=== PATIENT | female | born 1930 | race Caucasian/White ===

== ENCOUNTER 2017-02-14 23:21 | Inpatient (IN) | payer MEDICARE ==
[~2017-02-14] VITALS: Ht 152.4 cm; Wt 60.3 kg
[2017-02-14] MEDS ORDERED: ALPR0.25 PO (23:29)
[2017-02-14] MEDS ORDERED: PARO10TA3 PO (23:29)
[2017-02-14] MEDS ORDERED: LOVA10TA PO (23:29)
[2017-02-14] MEDS ORDERED: cefTRIAXone INJECTION 1,000 MG in NS (IVPB) 50 ML IV ONE (23:30)
[2017-02-14 23:49] LABS: HEMOGLOBIN 9.1 G/DL (11.5-16.0); MEAN PLATELET VOLUME 9.4 FL (7.4-10.4); RED BLOOD COUNT 2.78 10^6/uL (4.35-5.85); RED CELL DISTRIBUTION WIDTH 12.8 % (10.0-14.5); WHITE BLOOD COUNT 12.4 10^3/uL (4.3-11.0)
[2017-02-14 23:58] LABS: PROTHROMBIN TIME PATIENT 13.5 SEC (12.2-14.7)
--- NOTE | 2017-02-15 00:29 | ED Fall/Injury ---
General Chief Complaint: Trauma-Non Activation Stated Complaint: FALL Nursing Triage Note: FALL LEFT HIP FX Source: patient Exam Limitations: no limitations (NATACHA LANCASTER MD) History of Present Illness Time seen by provider: 23:25 Initial Comments This 86-year-old woman presents to the emergency room as a transfer from [facility] in [place] with a known left hip fracture. Patient reports stumbling off of a low curb and falling on her left side. She denies striking her head or any head or neck pain. She denies any prodrome of lightheadedness, dizziness, etc. She is a relatively healthy woman with few health problems. She was seen and evaluated by Dr. Valles who called report to me and to CHEMA Nuno. I discussed the case with him at 22:30. Case had also been reviewed between Darian You and Dr. Carrneo who tentatively accepted the patient but requested the patient be routed through the ER. Patient received a total of fentanyl 200 g and morphine 2 mg by [facility]. She also received an additional 2 mg of morphine by EMS. Pain is fairly well controlled by the time of arrival. Labs were reviewed as provided by EMS. Patient was noted to have some anemia. Suggestion of UTI was also noted. Occurred: this evening Injuries/Pain Location: lower extremity Context: slipped Loss of Consciousness: no loss of consciousness (NATACHA LANCASTER MD) Allergies and Home Medications Allergies Coded Allergies: No Known Drug Allergies (Unverified , 02/14/17) Home Medications Alprazolam 0.25 Mg Tablet, Unknown Dose PO, (Reported) Lovastatin 10 Mg Tablet, Unknown Dose PO, (Reported) Paroxetine HCl 10 Mg Tablet, Unknown Dose PO, (Reported) Constitutional: no symptoms reported Eyes: No Symptoms Reported Ears, Nose, Mouth, Throat: no symptoms reported Respiratory: no symptoms reported Cardiovascular: no symptoms reported Gastrointestinal: no symptoms reported Genitourinary: no symptoms reported Musculoskeletal: see HPI Skin: no symptoms reported Psychiatric/Neurological: No Symptoms Reported (NATACHA LANCASTER MD) Past Rglmezj-Upyywy-Gaccxy Hx Patient Social History Alcohol Use: Denies Use Recreational Drug Use: No 2nd Hand Smoke Exposure: No Recent Foreign Travel: No Contact w/Someone Who Travel: No Recent Infectious Disease Expo: No Recent Hopitalizations: No (NATACHA LANCASTER MD) Immunizations Up To Date Tetanus Booster (TDap): Unknown (NATACHA LANCASTER MD) Seasonal Allergies Seasonal Allergies: No (NATACHA LANCASTER MD) Surgeries History of Surgeries: Yes Surgeries: Orthopedic (NATACHA LANCASTER MD) Respiratory History of Respiratory Disorde: No (NATACHA LANCASTER MD) Cardiovascular History of Cardiac Disorders: Yes Cardiac Disorders: High Cholesterol (NATACHA LANCASTER MD) Neurological History of Neurological Disord: No (NATACHA LANCASTER MD) Reproductive System : No 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 (NATACHA LANCASTER MD) Genitourinary History of Genitourinary Disor: No (NATACHA LANCASTER MD) Gastrointestinal History of Gastrointestinal Di: No (NATACHA LANCASTER MD) Musculoskeletal History of Musculoskeletal Dis: Yes Musculoskeletal Disorders: Arthritis (NATACHA LANCASTER MD) Endocrine History of Endocrine Disorders: No (NATACHA LANCASTER MD) HEENT History of HEENT Disorders: No (NATACHA LANCASTER MD) Cancer History of Cancer: No (NATACHA LANCASTER MD) Psychosocial History of Psychiatric Problem: Yes Behavioral Health Disorders: Anxiety, Depression (NATACHA LANCASTER MD) Integumentary History of Skin or Integumenta: No (NATACHA LANCASTER MD) Physical Exam Vital Signs Vital Sign - Last 12Hours 02/14/17 23:21 Temp 96.5 Pulse 70 Resp 18 B/P (MAP) 128/72 (90) Pulse Ox 97 O2 Delivery Room Air (DARIAN YOU) Vital Signs Capillary Refill : Less Than 3 Seconds (NATACHA LANCASTER MD) General Appearance: WD/WN, no apparent distress HEENT: PERRL/EOMI, normal ENT inspection, pharynx normal Neck: normal inspection Cardiovascular: regular rate, rhythm, no edema, no murmur Respiratory: lungs clear, normal breath sounds, no respiratory distress, no accessory muscle use Gastrointestinal: normal bowel sounds, non tender, soft Extremities: normal inspection, no pedal edema, other (left lateral hip tender to palpation. Distal capillary refill, sensation, movement, and pulses intact.) Neurologic/Psychiatric: area secretary II-XII nml as tested, no motor/sensory deficits, alert, normal mood/affect, oriented x 3 Skin: normal color, warm/dry (NATACHA LANCASTER MD) Inna Coma Score Best Eye Response: (4) Open Spontaneously Best Verbal Response: (5) Oriented Best Motor Response: (6) Obeys Commands Inna Total: 15 (NATACHA LANCASTER MD) Progress/Results/Core Measures Results/Orders Lab Results Laboratory Tests Test 02/14/17 23:40 Range/Units White Blood Count 12.4 H 4.3-11.0 10^3/uL Red Blood Count 2.78 L 4.35-5.85 10^6/uL Hemoglobin 9.1 L 11.5-16.0 G/DL Hematocrit 28 L 35-52 % Mean Corpuscular Volume 102 H 80-99 FL Mean Corpuscular Hemoglobin 33 25-34 PG Mean Corpuscular Hemoglobin Concent 32 32-36 G/DL Red Cell Distribution Width 12.8 10.0-14.5 % Platelet Count 211 130-400 10^3/uL Mean Platelet Volume 9.4 7.4-10.4 FL Prothrombin Time 13.5 12.2-14.7 SEC INR Comment 1.0 0.8-1.4 Activated Partial Thromboplast Time 20 L 24-35 SEC (DARIAN YOU) Medications Given in ED Current Medications Medications Dose Ordered Sig/Kamron Route Start Time Stop Time Status Last Admin Dose Admin Ceftriaxone Sodium 1000 mg/ Sodium Chloride 50 ml @ 100 mls/hr ONCE ONCE IV 02/14/17 23:30 02/14/17 23:59 DC 02/14/17 23:43 100 MLS/HR (DARIAN YOU) Vital Signs/I&O Vital Sign - Last 12Hours 02/14/17 23:21 Temp 96.5 Pulse 70 Resp 18 B/P (MAP) 128/72 (90) Pulse Ox 97 O2 Delivery Room Air (DARIAN YOU) Blood Pressure Mean: 90 Progress Note : Time: 00:30 Progress Note Pain was controlled during the ER stay. Coag studies were added to the workup along with a repeat CBC. Hemoglobin showed minimal change. X-rays of the hip were reviewed on the CD. There is a comminuted intertrochanteric left hip fracture noted. Rocephin was given for suggestion of UTI. (NATACHA LANCASTER MD) Diagnostic Imaging Diagonstic Imaging: Xray Plain Films/CT/US/NM/MRI: hip Comments X-rays of the left hip viewed by me. Report not yet available. There is a comminuted intertrochanteric left hip fracture. Diagonstic Imaging: CT Plain Films/CT/US/NM/MRI: c-spine, head Comments CT head and C-spine viewed by me and stat rad report reviewed. No acute injuries identified. (NATACHA LANCASTER MD) Departure Communication (Admissions) Progress Notes 0 Call accepted from [facility] ED of [facility]. 86 yo female patient with isolated left hip fracture. Dr. Yoo requesting transfer to [facility] ED due to no ortho coverage in [facility]. [facility] staff to fax patient info for review and discussion with Dr. Carreno. [id number] info received from [facility] ED. Isolated left hip fracture per records. Patient case discussed with Dr. Carreno. Dr. Carreno tentatively accepts patient to his orthopaedic service, but request patient to be evaluated in the emergency department. Dr. Yoo notified of accepting patient in ED to ED transfer. (DARIAN YOU) Impression Impression: Primary Impression: Intertrochanteric fracture of left hip Qualified Codes: S72.142A - Displaced intertrochanteric fracture of left femur , initial encounter for closed fracture Additional Impressions: Fall on same level Qualified Codes: W18.30XA - Fall on same level, unspecified, initial encounter Urinary tract infection Qualified Codes: N39.0 - Urinary tract infection, site not specified Disposition: ADMITTED INPATIENT Condition: Improved Admissions Decision to Admit Reason: Admit from ER (Trauma) Decision to Admit/Date: Feb 14, 2017 Time/Decision to Admit Time: 22:30 (NATACHA LANCASTER MD) NATACHA LANCASTER MD Feb 15, 2017 00:29 DARIAN YOU Feb 15, 2017 00:47
[2017-02-15 01:45] VITALS: BP 136/65
[2017-02-15] MEDS ORDERED: morphine INJ 4 MG/ML 1 ML (VIAL/SYRINGE) ONE (01:59)
[2017-02-15] MEDS ORDERED: NS IV 1000 ML 1,000 ML ONE (01:59)
[2017-02-15] MEDS: morphine INJ 4 MG/ML 1 ML (VIAL/SYRINGE) IV PRN ×2 (02:34→08:04)
[2017-02-15] MEDS: NS IV 1000 ML 1,000 ML IV SCH ×4 (02:34→22:45)
[2017-02-15] MEDS ORDERED: ONDANSETRON 4 MG/2 ML (SDV) Z0FRAN IV PRN (02:45)
[2017-02-15 04:00] VITALS: BP 102/53
[2017-02-15 06:28] LABS: BASOPHILS % (AUTO) 0 % (0-10); EOSINOPHILS % (AUTO) 0 % (0-10); HEMATOCRIT 29 % (35-52); HEMOGLOBIN 9.3 G/DL (11.5-16.0); LYMPHOCYTES # (AUTO) 1.9 X 10^3 (1.0-4.0); LYMPHOCYTES % (AUTO) 18 % (12-44); MEAN CORPUSCULAR HEMOGLOBIN 33 PG (25-34); MEAN CORPUSCULAR HGB CONC 32 G/DL (32-36); MEAN CORPUSCULAR VOLUME 104 FL (80-99); MEAN PLATELET VOLUME 9.5 FL (7.4-10.4); MONOCYTES # (AUTO) 0.9 X 10^3 (0.0-1.0); MONOCYTES % (AUTO) 8 % (0-12); NEUTROPHILS % (AUTO) 74 % (42-75); PLATELET COUNT 226 10^3/uL (130-400); RED CELL DISTRIBUTION WIDTH 12.9 % (10.0-14.5); WHITE BLOOD COUNT 10.8 10^3/uL (4.3-11.0)
[2017-02-15 06:43] LABS: ALBUMIN 3.4 GM/DL (3.2-4.5); BILIRUBIN,TOTAL 0.5 MG/DL (0.1-1.0); CREATININE SERUM 1.01 MG/DL (0.60-1.30); POTASSIUM 4.7 MMOL/L (3.6-5.0); TOTAL PROTEIN 6.4 GM/DL (6.4-8.2)
[2017-02-15] MEDS ORDERED: LACTATED RINGERS 1,000 ML IV PRN (07:25)
--- NOTE | 2017-02-15 07:29 | Diagnostic Imaging Report ---
PROCEDURE: CT head and CT cervical spine without contrast. TECHNIQUE: Multiple contiguous axial images were obtained through the brain and cervical spine without the use of intravenous contrast. Sagittal and coronal reformations through the cervical spine were then performed. INDICATION: Fell, head and neck pain There are no prior studies available for comparison. CT head: There is no mass, shift of the midline or hemorrhage to suggest an acute abnormality. The ventricles are not abnormally dilated. There is cortical atrophy present. There are also areas of low density in the periventricular white matter bilaterally. These findings are nonspecific but may be secondary to encephalomalacia from microvascular ischemia. The bone windows show no evidence for a fracture or for a destructive lesion. There is mucosal thickening involving the maxillary sinuses, particularly the left maxillary and left frontal sinuses. The orbits are symmetrical and within normal limits. IMPRESSION: 1. There is no evidence for an acute intracranial abnormality. 2. If clinical concern regarding an acute abnormality persists, then MRI would be recommended for further study. 3. There is pansinusitis. CT cervical spine: The reconstructed parasagittal images show reversal of the normal lordosis of the cervical spine. There is also severe degenerative disc and bony disease throughout the cervical spine, particularly at the C5-6 and C6-7 levels. There is no evidence for a fracture or for acute bony abnormality, however. There is no sign of retropharyngeal edema. The thyroid gland is unremarkable. The lung apices are clear. IMPRESSION: There is severe degenerative disc and bony disease involving the cervical spine but there is no evidence for an acute bony abnormality. Dictated by: Dictated on workstation # [id number]
[2017-02-15] MEDS: FAMOTIDINE 20MG/2ML IV (PEPCID) IVP SCH ×2 (08:02→20:26)
[2017-02-15 08:09] VITALS: BP 108/54
--- NOTE | 2017-02-15 10:13 | History & Physicial ---
History of Present Illness History of Present Illness Reason for visit/HPI Pt. a pleasant 86 y/o female that presents with CC of acute onset of Left hip pain and an inability to bear weight/ambulate on her LLE secondary to a mechanical GLF onto her Left hip. She was subsequently transferred to the [facility] ED for evaluation/treatment. Upon presentation plain XRs of the pelvis/ Left femur demonstrated a displaced intertrochanteric fracture of the Left proximal femur. The patient was admitted to the orthopedic service for definitive management of her injury. She denies head trauma/neck pain or LOC. She denies syncope/seizure activity. She denies having sustained additional musculoskeletal injuries. She has no other neuromusculoskeletal complaints. Date of Admission Feb 14, 2017 at 23:30 Date Seen by Provider: Feb 15, 2017 Time Seen by Provider: 08:00 I consulted on this patient on 02/15/17 10:08 Attending Physician Karime Terrell DO Admitting Physician Marie,Local Physician Consult Hospitalist for post-op medical care. Allergies and Home Medications Allergies Coded Allergies: No Known Drug Allergies (Unverified , 02/14/17) Home Medications Alprazolam 0.25 Mg Tablet, Unknown Dose PO, (Reported) Lovastatin 10 Mg Tablet, Unknown Dose PO, (Reported) Paroxetine HCl 10 Mg Tablet, Unknown Dose PO, (Reported) Past Piihgtt-Rgfdpv-Ogtcte Hx Patient Social History Marrital Status: Alcohol Use: Denies Use Recreational Drug Use: No Smoking Status: Never a Smoker 2nd Hand Smoke Exposure: No Physical Abuse Screen: No Sexual Abuse: No Recent Foreign Travel: No Contact w/other who traveled: No Recent Hopitalizations: No Recent Infectious Disease Expo: No Immunizations Up To Date Tetanus Booster (TDap): Unknown Date of Pneumonia Vaccine: Dec 03, 2016 Date of Influenza Vaccine: Dec 03, 2016 Seasonal Allergies Seasonal Allergies: No Surgeries No (back surgery-2008) Orthopedic Respiratory No Currently Using CPAP: No Currently Using BIPAP: No Cardiovascular Yes High Cholesterol Neurological No Reproductive System : No MANAGER PATHOLOGY History: Menopausal Genitourinary No Gastrointestinal No Musculoskeletal Yes Arthritis Endocrine History of Endocrine Disorders: No HEENT History of HEENT Disorders: No Cancer No Psychosocial History of Psychiatric Problem: Yes Behavioral Health Disorders: Anxiety, Depression Integumentary History of Skin or Integumenta: No Blood Transfusions History of Blood Disorders: No Family Medical History Family Hx: Patient reports no known family medical history. Constitutional: no symptoms reported EENTM: no symptoms reported Respiratory: no symptoms reported Cardiovascular: no symptoms reported Gastrointestinal: no symptoms reported Genitourinary: no symptoms reported Musculoskeletal: joint pain, other (severe Left hip pain) Psychiatric/Neurological: No Symptoms Reported Physical Exam Vital Signs Vital Sign - Last 12Hours 02/14/17 23:21 Temp 96.5 Pulse 70 Resp 18 B/P (MAP) 128/72 (90) Pulse Ox 97 O2 Delivery Room Air Capillary Refill : Less Than 3 SecondsLess Than 3 Seconds General Appearance: No Apparent Distress Eyes: Bilateral Eye Normal Inspection, Bilateral Eye PERRL HEENT: PERRL/EOMI Neck: Full Range of Motion Respiratory: No Accessory Muscle Use, No Respiratory Distress Cardiovascular: Regular Rate, Rhythm Gastrointestinal: Non Tender, Soft Back: Normal Inspection Extremity: Other (LLE: shortened/externally rotated; skin intact, no open wounds, all compartments soft/compressible, motor/sensation grossly intact, foot well perfused.) Neurologic/Psychiatric: Alert, Oriented x3, No Motor/Sensory Deficits, Normal Mood/Affect, tavern car attendant II-XII Norm as Tested Reflexes: 2+ Bicep (R), 2+ Bicep (L), 2+ Tricep (R), 2+ Tricep (L), 2+ Knee (R) , 2+ Knee (L), 2+ Ankle (R), 2+ Ankle (L) Skin: Warm/Dry Assessment/Plan Assessment and Plan A: 86 y/o female s/p mechanical GLF Displaced, comminuted unstable intertrochanteric fracture Left proximal femur. P: Unstable injury that will require operative fixation. Keep NPO and will plan for surgery today. Hospitalist consult for medical management. I have explained the nature of the injury and the treatment plain in detail with the patient and her including the risks/benefits/potential complications and expected outcomes. All of her questions have been answered to her satisfaction. The patient has given informed written consent to proceed as planned. Problems: Admission Diagnosis Intertrochanteric fracture Left proximal femur. Clinical Quality Measures DVT/VTE Risk/Contraindication: Risk Factor Score Per Nursin RFS Level Per Nursing on Admit: 4+=Very High KARIME TERRELL DO Feb 15, 2017 10:13
[2017-02-15] MEDS ORDERED: BISACODYL 5 MG (DULCOLAX) TABLET PO PRN (10:15)
[2017-02-15] MEDS ORDERED: morphine INJ 4 MG/ML 1 ML (VIAL/SYRINGE) IV PRN (10:15)
[2017-02-15] MEDS ORDERED: MILK OF MAGNESIA 400 MG/5 ML 30 ML UDC PO PRN (10:15)
[2017-02-15] MEDS ORDERED: ceFAZolin 1,000 MG (ANCEF) VIAL ONE (10:27)
[2017-02-15] MEDS ORDERED: LIDOCAINE PF 2% 5 ML (XYLOCAINE) VIAL ONE (10:35)
[2017-02-15] MEDS ORDERED: proPOfol 200 MG/20 ML (DIPRIVAN) VIAL IV ONE (10:35)
[2017-02-15] MEDS ORDERED: ONDANSETRON 4 MG/2 ML (SDV) Z0FRAN ONE (11:09)
[2017-02-15] MEDS ORDERED: SEVOFLURANE (ULTANE) 15 ML INHAL SOLN ONE (11:09)
[2017-02-15] MEDS ORDERED: fentaNYL INJECTION 100 MCG/2 ML AMP ONE (11:10)
[2017-02-15] MEDS ORDERED: morphine INJ 10 MG/ML 1ML (SYR OR VIAL) ONE (11:26)
--- NOTE | 2017-02-15 11:37 | Operative Report ---
Operative Report Date of Procedure/Surgery Feb 15, 2017 Surgeon (s) KARIME TERRELL DO Spent Grain Dryer (s): Oren Caballero PA-C Post-Operative Diagnosis Intertrochanteric fracture Left proximal femur Procedure Performed Closed reduction intertrochanteric fracture Left proximal femur/insertion of cephalomedullary nail Left femur Description of Procedure Anesthesia Type: General Estimated blood loss (mL): 50 mL Specimen(s) collected/removed None Description of the Procedure As above Findings of the Procedure Unstable, 3-part intertrochanteric fracture Left proximal femur Allergies and Home Medications Allergies Coded Allergies: No Known Drug Allergies (Unverified , 02/14/17) Home Medications Alprazolam 0.25 Mg Tablet, Unknown Dose PO, (Reported) Lovastatin 10 Mg Tablet, Unknown Dose PO, (Reported) Paroxetine HCl 10 Mg Tablet, Unknown Dose PO, (Reported) KARIME TERRELL DO Feb 15, 2017 11:37
[2017-02-15] MEDS ORDERED: fentaNYL INJECTION 100 MCG/2 ML AMP IVP PRN (12:00)
[2017-02-15] MEDS ORDERED: ONDANSETRON 4 MG/2 ML (SDV) Z0FRAN IVP PRN (12:00)
[2017-02-15] MEDS ORDERED: PARO20TA5 PO (12:40)
[2017-02-15 12:49] VITALS: BP 142/65
--- NOTE | 2017-02-15 14:18 | Consultation-Hospitalist ---
HPI History of Present Illness: HPI/Chief Complaint CC: Medical management following left femur fracture s/p uncomplicated repair by Dr Carreno POD # 0 HPI: This is an 86-year-old white female that was visiting her niece's house last night when she fell suffering a left femur fracture. Dr. Carreno performed an uncomplicated repair this morning and she is currently in her room and 425 denying any issues. Her of 8 years is at the bedside and reports that Dr. Pimentel in [facility] is her primary care provider and recently gave her a clean bill of health. I explained my role in her treatment plan and I will be checking morning labs. Source: patient, family Exam Limitations: clinical condition Date Seen 02/15/17 Attending Physician Barrett Carreno DO PCP No,Local Physician Referring Physician Date of Admission Feb 14, 2017 at 23:30 Home Medications & Allergies Home Medications Reviewed patient Home Medication Reconciliation Form Allergies Allergies Coded Allergies No Known Drug Allergies ([id number]/30/17) Past Uqbchek-Tvccye-Okckdh Hx Patient Social History Marrital Status: Employed/Student: retired ([employer] ) Alcohol Use: Denies Use Recreational Drug Use: No Smoking Status: Never a Smoker 2nd Hand Smoke Exposure: No Physical Abuse Screen: No Sexual Abuse: No Recent Foreign Travel: No Contact w/other who traveled: No Recent Hopitalizations: No Recent Infectious Disease Expo: No Immunizations Up To Date Tetanus Booster (TDap): Unknown Date of Pneumonia Vaccine: Dec 03, 2016 Date of Influenza Vaccine: Dec 03, 2016 Seasonal Allergies Seasonal Allergies: No Surgeries Yes Orthopedic Respiratory No Currently Using CPAP: No Currently Using BIPAP: No Cardiovascular Yes High Cholesterol Neurological No Reproductive System : No 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 Review of Systems Constitutional: see HPI EENTM: no symptoms reported Respiratory: no symptoms reported Cardiovascular: no symptoms reported Gastrointestinal: no symptoms reported Genitourinary: no symptoms reported Musculoskeletal: joint pain (left hip) Psychiatric/Neurological: No Symptoms Reported All Other Systems Reviewed Negative Unless Noted: Yes Physical Exam Physical Exam Vital Signs Vital Sign - Last 12Hours 02/14/17 02/15/17 23:21 12:49 Temp 96.5 Pulse 70 Resp 18 B/P (MAP) 128/72 (90) Pulse Ox 97 O2 Delivery Room Air O2 Flow Rate 2.00 Capillary Refill : Less Than 3 SecondsLess Than 3 Seconds General Appearance: No Apparent Distress, WD/WN, Chronically ill, Thin, Other ( pale) Eyes: Bilateral Eye Normal Inspection, Bilateral Eye PERRL HEENT: PERRL/EOMI, Normal ENT Inspection, Pharynx Normal Neck: Full Range of Motion, Normal Inspection, Non Tender, Supple, Carotid Bruit Respiratory: Chest Non Tender, Lungs Clear, Normal Breath Sounds, No Accessory Muscle Use, No Respiratory Distress Cardiovascular: Regular Rate, Rhythm, No Edema, No Gallop, No JVD, No Murmur, Normal Peripheral Pulses Gastrointestinal: Normal Bowel Sounds, No Organomegaly, No Pulsatile Mass, Non Tender, Soft Back: Normal Inspection, No CVA Tenderness, No Vertebral Tenderness Extremity: Normal Capillary Refill, Normal Inspection, Normal Range of Motion, Non Tender, No Calf Tenderness, No Pedal Edema Neurologic/Psychiatric: Alert, Oriented x3, No Motor/Sensory Deficits, Depressed Affect Skin: Normal Color, Warm/Dry Lymphatic: No Adenopathy Results Results/Procedures Lab Laboratory Tests 02/14/17 23:40 02/15/17 06:10 Assessment/Plan Admission Diagnosis Assessment: Left acute femur fracture status post uncomplicated repair by Dr. Carreno POD # 0 Hyperlipidemia maintained on statin Anxiety maintain on Paxil High risk for delirium due to advanced age Assessment and Plan Plan: Reconcile all home meds when completed by pharmacy benefits coordinator Check iron level tomorrow morning Pain control Gentle IV fluids PT/OT Inpatient rehabilitation eval Clinical Quality Measures DVT/VTE Risk/Contraindication: Risk Factor Score Per Nursin RFS Level Per Nursing on Admit: 4+=Very High LOI TIPTON DO Feb 15, 2017 14:18
--- NOTE | 2017-02-15 14:18 | Diagnostic Imaging Report ---
EXAMINATION: Left hip, fluoroscopic imaging. COMPARISON: None. INDICATION: 86-year-old female, left hip fracture. FINDINGS: 79.1 seconds of fluoroscopic time was utilized for placement of intramedullary vivain with dynamic fixation screw across the left intertrochanteric femur fracture. There are limitations of bone detail on fluoroscopic imaging. IMPRESSION: 1. Fluoroscopy for assistance with open reduction and internal fixation of the left intertrochanteric femur fracture. Dictated by: Dictated on workstation # [id number]
[2017-02-15] MEDS: IRON SUCROSE INJECTION 200 MG in NS (IVPB) 100 ML IV SCH (15:05)
[2017-02-15] MEDS: HYDROcodone/APAP 5 MG/325 MG (LORTAB) TAB PO PRN ×2 (16:26→21:56)
[2017-02-15 16:38] VITALS: BP 112/64
[2017-02-15] MEDS ORDERED: ALPR0.5T7 PO (17:53)
[2017-02-15] MEDS ORDERED: IBUP-1773 PO (17:53)
[2017-02-15 20:04] VITALS: BP 106/62
[2017-02-15] MEDS: DOCUSATE SODIUM 100 MG (COLACE) CAP PO SCH (20:26)
[2017-02-15] MEDS: SENNOSIDES 8.6 MG (SENOKOT) TAB PO SCH (20:26)
[2017-02-16] VITALS (11 sets, daily range): BP systolic 88–156; BP diastolic 37–68
[2017-02-16] MEDS: NS IV 1000 ML 1,000 ML IV SCH ×3 (00:53→23:10)
[2017-02-16 05:57] LABS: MEAN PLATELET VOLUME 9.4 FL (7.4-10.4); RED BLOOD COUNT 2.06 10^6/uL (4.35-5.85); RED CELL DISTRIBUTION WIDTH 13.2 % (10.0-14.5); WHITE BLOOD COUNT 7.5 10^3/uL (4.3-11.0)
[2017-02-16 06:14] LABS: ALANINE AMINOTRANSFERASE 14 U/L (0-55); ALBUMIN 2.6 GM/DL (3.2-4.5); ALKALINE PHOSPHATASE 39 U/L (40-136); BILIRUBIN,TOTAL 0.5 MG/DL (0.1-1.0); BUN/CREATININE RATIO 33; CALCIUM 7.8 MG/DL (8.5-10.1); CARBON DIOXIDE 21 MMOL/L (21-32); CHLORIDE 113 MMOL/L (98-107); CREATININE SERUM 0.82 MG/DL (0.60-1.30); GFR ESTIMATED > 60; GLUCOSE 98 MG/DL (70-105); POTASSIUM 4.2 MMOL/L (3.6-5.0); SODIUM 142 MMOL/L (135-145); TOTAL PROTEIN 4.8 GM/DL (6.4-8.2)
[2017-02-16] MEDS: cefTRIAXone INJECTION 1,000 MG in NS (IVPB) 50 ML IV SCH (08:43)
[2017-02-16] MEDS: DOCUSATE SODIUM 100 MG (COLACE) CAP PO SCH ×2 (08:43→21:11)
[2017-02-16] MEDS: ENOXAPARIN 30 MG/0.3 ML (LOVENOX) SYR SC SCH (08:43)
[2017-02-16] MEDS: HYDROcodone/APAP 5 MG/325 MG (LORTAB) TAB PO PRN ×3 (08:44→21:12)
[2017-02-16] MEDS: SENNOSIDES 8.6 MG (SENOKOT) TAB PO SCH ×2 (08:44→21:11)
[2017-02-16] MEDS: FAMOTIDINE 20MG/2ML IV (PEPCID) IVP SCH (08:48)
--- NOTE | 2017-02-16 10:44 | Anesthesia-General Post-Op ---
General Patient Condition Mental Status/LOC: Same as Preop Cardiovascular: Satisfactory Nausea/Vomiting: Absent Respiratory: Satisfactory Pain: Controlled Complications: Absent Post Op Complications Complications None Follow Up Care/Instructions Patient Instructions None needed. Anesthesia/Patient Condition Patient Condition Patient is doing well, no complaints, stable vital signs, no apparent adverse anesthesia problems. No complications reported per nursing. VLAD DAMICO CRNA Feb 16, 2017 10:44
--- NOTE | 2017-02-16 11:10 | Physical Therapy Evaluation ---
PT Evaluation-General Medical Diagnosis Admission Date Feb 14, 2017 at 23:30 Medical Diagnosis: fall with intertrochanteric Fx (L) femur; s/p closed reduction, nail Onset Date: Feb 14, 2017 Therapy Diagnosis Therapy Diagnosis: decreased functional mobility Height/Weight Height (Feet): 5 Height (Inches): 0.00 Weight (Pounds): 133 Weight (Ounces): 0.0 Precautions Precautions/Isolations: Fall Prevention, Standard Precautions Weight Bear Status Right Lower Extremity: Right Full Weight Bearing Left Lower Extremity: Left Weight Bearing/Tolerated Referral Physician: CHEMA Crespo Reason for Referral: Evaluation/Treatment Medical History Pertinent Medical History: Arthritis Additional Medical History back Sx (2008), high cholesterol, anxiety, depression Current History Pt s/p fall with displaced, comminuted unstable intertrochanteric Fx (L) proximal femur. s/p close reduction, nail (L) femur Reviewed History: Yes Social History Home: Single Level Current Living Status: Spouse Entry Into Home: Stairs With Railing PT Steps Into Home: 6 Prior/Core FIM Prior Level of Function Functional [place] Measure 0=Not Assessed/NA 4=Minimal Assistance 1=Total Assistance 5=Supervision or Setup 2=Maximal Assistance 6=Modified [place] 3=Moderate Assistance 7=Complete [place] Bed Mobility: 7 Transfers (B,C,W/C) (FIM): 7 Gait: 6 Pt reports (I) at [facility] for mobility in the home. Reports "When I went to [facility] I wouldn't take my walker because I could use a cart. If I went to [facility] or somewhere I didn't know if I could get a cart, I would take my 4WW with the seat". PT Evaluation-Current Subjective Pt just up to chair with nursing. Pain rating not provided when asked but Pt repeatedly stated, "I've never hurt this much before in my life". Agreeable to evaluation with encouragement. Pt/Family Goals home Objective Patient Orientation: Person, Place, Time, Situation Problem Solving: Good Attachments: IV ROM/Strength ROM Upper Extremities WFL for TFRs ROM Lower Extremities WFL for TFRs; guarded with movement of (L) LE Strength Upper Extremities WFL for TFRs Strength Lower Extremities (R) LE grossly 4/5; (L) LE not tested. Pt very guarded with any movement in (L) LE this date. Integumentary/Posture Integumentary See nurses' notes Sensory Vision: Functional Transfers Functional [place] Measure 0=Not Assessed/NA 4=Minimal Assistance 1=Total Assistance 5=Supervision or Setup 2=Maximal Assistance 6=Modified [place] 3=Moderate Assistance 7=Complete [place] Sit to/from Stand: 3 Balance Sitting Static: Good Standing Static: Fair Treatment Eval. Pt just up to chair with nursing, agreeable to stand at chair only. Sit <- >stand with mod A x 1 and max skilled VCS. Pt retropulsive and stands with flexed posture. Pt stood for only about 1' before stating she needed to sit. Pt up in chair with needs met post treatment. Assessment/Needs Pt would benefit from skilled PT to address functional limitations s/p fall with Fx. Pt's problem list includes: decreased ROM and strength in (L) LE, decreased functional mobility, decreased gait, and increased caregiver burden with daily functional mobility. Rehab Potential: Good PT Short Term Goals Short Term Goals Time Frame: Feb 23, 2017 Transfers (B,C,W/C) (FIM): 5 PT Glove Turner And Former Automatic Goals Chcf Goals PT Chcf Goals Time Frame: Mar 02, 2017 Transfers (B,C,W/C) (FIM): 6 Gait (FIM): 5 Gait distance (FIM): 6=010-60 ft Distance: 75 Gait Level of Assist: 6 Gait Assistive Device: FWW Stairs (FIM): 5 # of Steps: 4 Stairs Level Of Assist: 6 PT goals established to restore PLOF and allow safe return home. PT Plan Problem List Problem List: Activity Tolerance, Functional Strength, Safety, Balance, Gait, Transfer, Bed Mobility, ROM Treatment/Plan Treatment Plan: Continue Plan of Care Treatment Plan: Bed Mobility, Education, Functional Activity Jimmie, Functional Strength, Gait, Safety, Therapeutic Exercise, Transfers Treatment Duration: Mar 02, 2017 Frequency: 11 times per week Estimated Hrs Per Day: .5 hour per day Patient and/or Family Agrees t: Yes Safety Risks/Education Patient Education: Transfer Techniques Teaching Recipient: Patient Teaching Methods: Discussion Response to Teaching: Reinforcement Needed Discharge Recommendations Barriers to Progress pain Time/GCodes Time In: 0843 Time Out: 0900 Total Billed Treatment Time: 17 Total Billed Treatment 1, EVLOWC x 17' G Codes Necessary: JERONIMO Rosado DPT Feb 16, 2017 11:10
--- NOTE | 2017-02-16 11:11 | Progress Note (SOAP) ---
Subjective Date Seen by Provider: Feb 16, 2017 Time Seen by Provider: 10:45 Subjective/Events-last exam Pt LINO, some mild confusion this morning, awake and alert, c/o mild-moderate post-op Left hip pain, no cp/sob, no adverse events overnight, otherwise doing well with no complaints. Objective Exam Vital Signs Date Time Temp Pulse Resp B/P (MAP) Pulse Ox O2 Delivery O2 Flow Rate FiO2 02/16/17 11:01 99.1 78 18 108/59 (75) 97 Nasal Cannula 1.00 02/16/17 08:29 Nasal Cannula 1.00 02/16/17 08:21 98.9 73 18 100/55 (70) 95 Nasal Cannula 1.00 02/16/17 03:59 98.0 75 20 108/68 (81) 92 Nasal Cannula 1.00 02/16/17 01:37 73 88/37 (54) 02/16/17 00:40 99.2 72 18 93 Room Air 02/15/17 20:04 98.0 78 18 106/62 (77) 90 Room Air 02/15/17 16:52 Room Air 02/15/17 16:38 98.7 71 16 112/64 (80) 98 Nasal Cannula 2.00 02/15/17 12:49 97.5 75 16 142/65 (90) 96 Nasal Cannula 2.00 I & O 02/16/17 07:00 Intake Total 2450 ml Output Total 635 ml Balance 1815 ml Capillary Refill : Less Than 3 SecondsLess Than 3 Seconds General Appearance: No Apparent Distress Respiratory: No Accessory Muscle Use, No Respiratory Distress Cardiovascular: Regular Rate, Rhythm Peripheral Pulses: 2+ Dorsalis Pedis (R), 2+ Left Dors-Pedis (L) Gastrointestinal: non tender, soft Extremity: Other (LLE: left hip dressings c/d/i, all compartments soft/ compressible, foot well perfused, motor/sensation grossly intact.) Results Lab Laboratory Tests 02/16/17 05:41: White Blood Count 7.5, Red Blood Count 2.06L, Hemoglobin 7.0L, Hematocrit 22L, Mean Corpuscular Volume 106H, Mean Corpuscular Hemoglobin 34, Mean Corpuscular Hemoglobin Concent 32, Red Cell Distribution Width 13.2, Platelet Count 168, Mean Platelet Volume 9.4, Sodium Level 142, Potassium Level 4.2, Chloride Level 113H, Carbon Dioxide Level 21, Anion Gap 8, Blood Urea Nitrogen 27H, Creatinine 0.82, Estimat Glomerular Filtration Rate > 60, BUN/Creatinine Ratio 33, Glucose Level 98, Calcium Level 7.8L, Total Bilirubin 0.5, Aspartate Amino Transf (AST/ SGOT) 34, Alanine Aminotransferase (ALT/SGPT) 14, Alkaline Phosphatase 39L, Total Protein 4.8L, Albumin 2.6L Procedures IMN Left femur. Assessment/Plan Assessment/Plan Assess & Plan/Chief Complaint S/P IMN Left femur for unstable intertrochanteric fracture, POD #1 Ortho stable Mobilize OOB with PT/OT daily, WBAT LLE Current pain control regimen Lovenox/SCDs for inpatient VTE prophylaxis; will d/c on EC ASA Acute post-op blood loss anemia, Hb down to 7.0 from 9.3 preop Pt appears symptomatic Will transfuse 2U prbcs D/C planning: Case management for placement Anticipate pt ready for placement in 1-2 days from orthopedic standpoint. Clinical Quality Measures DVT/VTE Risk/Contraindication: Risk Factor Score Per Nursin RFS Level Per Nursing on Admit: 4+=Very High KARIME TERRELL DO Feb 16, 2017 11:11
--- NOTE | 2017-02-16 11:17 | Discharge Inst-Surgical ---
Discharge Inst-Surgical Depart Medication/Instructions New, Converted or Re-Newed RX: RX on Chart Patient Instructions Resume home meds as instructed; please take 325mg of enteric coated aspirin once daily for 3 weeks to help prevent blood clots. Consults/Follow Up Goal/Follow Up Appt.: Please follow-up outpatient with Dr. Terrell at [address] in 2 weeks. Please call the office to confirm your appointment. Activity Activity as Tolerated: Yes Weight bearing as tolerated left lower extremity; full weight bearing right lower extremity. Walking Assistive Device: Walker Activity Instructions: Avoid Stress to Incision Driving Instructions: No Driving/Refer to Dr. Gibbs Spirometry: Every 2 Hours While Awake Diet Discharge Diet: No Restrictions Skin/Wound Care Infection Signs and Symptoms: Increased Redness, Foul Odor of Wound, Increased Drainage, Increased Swelling, Temperature Above 101 F Wound Care Comment: Keep incisions clean and dry; do not soak incisions; may remove dressings in 3 days and shower; no baths or soaking tubs; richard to be removed from your incisions at 10-14 days post-op. Bathing Instructions: Shower Operative Area Clean and Dry: Keep Incision Clean/Dry Stitches/[place]/Dermabond Dis: Care of Richard KARIME TERRELL DO Feb 16, 2017 11:17
--- NOTE | 2017-02-16 12:24 | Progress Note-Hospitalist ---
Progress Note HPI/CC on Admission CC: Medical management following left femur fracture s/p uncomplicated repair by Dr Carreno POD # 0 HPI: This is an 86-year-old white female that was visiting her niece's house last night when she fell suffering a left femur fracture. Dr. Carreno performed an uncomplicated repair this morning and she is currently in her room and 425 denying any issues. Her of 8 years is at the bedside and reports that Dr. Pimentel in [facility] is her primary care provider and recently gave her a clean bill of health. I explained my role in her treatment plan and I will be checking morning labs. Progress Notes/Assess & Plan Date Seen 02/16/17 Time Seen by Provider: 11:00 Admission Dx/Process Assessment: Left acute femur fracture status post uncomplicated repair by Dr. Carreno POD # 0 Hyperlipidemia maintained on statin Anxiety maintain on Paxil High risk for delirium due to advanced age Diagonsis/Assessment & Plan Patient doing well overall. Family at bedside 2 units of blood ordered for the patient due to hgb 7.0 Reconciled and restarted most of home meds Checked meds and labs Venofer initiated Family reports she has had multiple falls in the past AFVSS, flat affect, family at bedside, pale, frail RRR, CTAB no rales noted No edema Laboratory Tests 02/16/17 05:41 Assessment: Left acute femur fracture status post uncomplicated repair by Dr. Carreno POD # 1 Hyperlipidemia maintained on statin Anxiety maintain on Paxil High risk for delirium due to advanced age Severe post op anemia due to acute blood loss now receiving 2 units of blood today Plan: Reconciled all home meds and holding a few Pain control PT/OT Inpatient rehabilitation eval Give 2 units of blood LOI TIPTON DO Feb 16, 2017 12:24
--- NOTE | 2017-02-16 13:15 | OPERATIVE REPORT ---
DATE OF SERVICE: 02/15/2017 PREOPERATIVE DIAGNOSES: Displaced, comminuted, three-part intertrochanteric fracture of left proximal femur. POSTOPERATIVE DIAGNOSES: Displaced, comminuted, three-part intertrochanteric fracture of left proximal femur. PROCEDURE PERFORMED: Closed manipulation followed by placement of a cephalomedullary nail, left proximal femur. IMPLANTS USED: The Synthes short trochanteric femoral nail, size 11 mm in diameter with a 130 degree proximal angle and a 90 mm cephalomedullary lag screw. ATTENDING SURGEON: Dr. Karime Terrell. THERMOCOUPLE TESTER: Oren Caballero PA-C: Jorje Caballero assistance was needed secondary to the complexity of the case, to hold the critical and necessary retractors, and to increase the efficiency and efficacy of the case. ANESTHESIA: General. ESTIMATED BLOOD LOSS: 50 mL. COMPLICATIONS: None. SPECIMENS: None. DRAINS: None. BRIEF HISTORY/INDICATIONS: The patient is a pleasant 86-year-old female who sustained a mechanical fall from ground level falling onto her left hip. She subsequently had severe pain in her left hip and an inability to bear weight or ambulate on her left lower extremity. As such, she was transferred to the [facility] Emergency Department for evaluation and treatment. Upon presentation, plain radiographs of her pelvis and left femur demonstrated a displaced, unstable intratrochanteric fracture of the left proximal femur. Orthopedic services were consulted for definitive management of her injury. The patient denied having sustained any other musculoskeletal injuries secondary to this fall, she denied head pain, neck pain or loss of consciousness or syncope. She had no additional complaints. Her left lower extremity was otherwise stable preoperatively, motor and sensation was grossly intact throughout, the left foot was well perfused, her skin was intact. There were no open wounds. I discussed the nature of her injury with her preoperatively in detail including the need for operative fixation. I explained the operative procedure in detail, which included the risks, benefits, potential complications and expected outcomes. After having this detailed discussion, the patient gave informed written consent to proceed as planned. All of her questions were answered to her satisfaction. PROCEDURE NOTE: After correctly identifying the patient as the patient in the preoperative holding area and after her left lower extremity was appropriately marked, she was transferred to the operating room. Once in the operating room, she had induction of general endotracheal anesthesia. Then, she was gently transferred to a standard fracture table and placed in the supine position. Bilateral lower extremities were secured to the fracture table in standard fashion. I completed a closed reduction maneuver of the intertrochanteric fracture on the fracture table and this was completed under fluoroscopic guidance to verify acceptable reduction of the fracture prior to prepping and draping the extremity. The left leg was then prepped and draped in the routine sterile fashion. Prior to beginning the case, we completed, an operating room timeout with all parties involved in the case are in agreement and verified appropriate infusion of prophylactic antibiotics. Using a 10 blade scalpel I made an incision of approximately 3 cm in length, 2 fingerbreadths proximal to the tip of the greater trochanter. After incising through the skin and subcutaneous tissue, blunt Metzenbaum scissors were used to dissect through the fascia of the gluteus rimma to gain access to the tip of the greater trochanter. Then, under fluoroscopic guidance, the guide pin for the nail was introduced into the proximal femur and inserted to the appropriate depth in the appropriate position as verified on both AP and lateral fluoroscopic views. The standard opening reamer was then placed over the guide pin and used to open the docking pilot hole in the proximal femur. The trochanteric femoral nail was then introduced into the proximal femur and inserted to the appropriate position using light taps of the mallet and done under fluoroscopic guidance. Once the nail was in the appropriate position and fracture reduction confirmed to be acceptable, the guide pin for the cephalomedullary lag screw was then placed the external aiming arm into the appropriate position of the femoral head and neck. Opening reamer followed by a step reamer was then used to prepare the path for the cephalomedullary lag screw. We measured the lag screw to be 90 mm. The lag screw was then placed over the guide pin into the appropriate position of the femoral head and neck under fluoroscopic guidance and verified in AP and lateral views to confirm that we had good tip apex distance with the lag screw. Then, using the external aiming arm, the distal locking bolt was placed through the distal aspect of the nail again, using fluoroscopic guidance. The nail was locked statically proximally, then AP and lateral C-arm views confirmed that the nail was in the appropriate position and that the fracture remained acceptably reduced. The external aiming arm and jig were removed, wounds were then irrigated with copious amounts of sterile saline followed by closure in the standard fashion using 0 Vicryl for the deep fascia, 2-0 Vicryl for the subcutaneous tissue and richard for the skin. The patient had a sterile dressing applied to her incisions, she was then awakened and extubated in the operating room without complications and then transferred to the recovery room in stable condition. She tolerated the procedure well without complications. All counts were correct at the end of the case. Job ID: [id number] DocumentID: [id number] Dictated Date: 02/16/2017 11:34:48 Sprinkler Worker Date: 02/16/2017 13:14:51 Dictated By: KARIME TERRELL
--- NOTE | 2017-02-16 13:43 | Occupational Therapy Eval ---
OT Evaluation-General/PLF Medical Diagnosis Admission Date Feb 14, 2017 at 23:30 Medical Diagnosis: fall with intertrochanteric Fx (L) femur; s/p closed reduction, nail Onset Date: Feb 14, 2017 Therapy Diagnosis Therapy Diagnosis: impaired self care skills Height/Weight Height (Feet): 5 Height (Inches): 0.00 Weight (Pounds): 133 Weight (Ounces): 0.0 Precautions Precautions/Isolations: Fall Prevention, Standard Precautions Safety Interventions: None Weight Bear Status Weight Bearing Restriction: Weight Bearing/Tolerated Referral Physician: CHEMA Crespo Medical History Pertinent Medical History: Arthritis Additional Medical History back surgery, high cholesterol, arthritis, anxiety, depression Current History Pt had fall with left hip fracture. Now s/p surgical repair. Reviewed History: Yes Social History Home: Single Level Current Living Status: Spouse Entry Into Home: Stairs With Railing Steps Into Home: 6 ADL-Prior Level of Function ADL PLOF Comments Pt reports being mostly independent with self care and mobility. 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 Pt states she does not get into the tub/ shower at home secondary to fear of falling. DME/Equipment: Tub/Shower Drive Self: No OT Current Status Subjective Pt sitting in chair, preparing to transfer to BSC with nurse aide. Pt reports pain in left hip, but does not rate. Mental Status/Objective Patient Orientation: Person, Place Attachments: IV, Oxygen Current Glasses/Contacts: Yes Hearing Aids: No Dentures/Partials: No Upper Extremity ROM Grossly functional ADL-Treatment ADL-Current Pt requesting to use BSC. Pt performs sit to stand with moderate assistance and cues to push up from chair. Pt stands with flexed posture and is unable to correct with cues. Pt has much difficulty advancing left LE and is unable to sequence taking steps to commode so chair was moved and BSC was placed behind pt. Pt requires total assist for toileting hygiene. Stand pivot transfer to EOB with max assist. Sit to supine with max assist. Pt in bed with needs met and spouse present after session. Functional [place] Measure 0=Not Assessed/NA 4=Minimal Assistance 1=Total Assistance 5=Supervision or Setup 2=Maximal Assistance 6=Modified [place] 3=Moderate Assistance 7=Complete IndependenceIRFPAI Quality Coding Scale 6 Independent with activity with or without an assistive device 5 Patient requires set up or clean up by helper. Patient completes activity by themselves 4 Supervision or touching assist (CGA). [place] provide cues , steadying assist 3 The helper provides less than half the effort to complete the activity 2 The helper provides more than half the effort to complete the activity 1 Dependent. The helper does all the effort to complete an activity 7 Patient refused to complete or attempt activity 9 The patient did not perform the activity before the current illness or injury 88 Not attempted due to Medical conditions or safety concerns Toileting (FIM): 1 Toilet/Commode Transfer (FIM): 2 Education OT Patient Education: Rehab process Teaching Recipient: Patient Teaching Methods: Discussion Response to Teaching: Reinforcement Needed OT Short Term Goals Short Term Goals Transfers (B,C,W/C) (FIM): 5 1=Demonstrate adherence to instructed precautions during ADL tasks. 2=Patient will verbalize/demonstrate understanding of assistive devices/ modifications for ADL. 3=Patient will improve strength/tolerance for activity to enable patient to perform ADL's. OT Retirement Goals Retirement Goals Time Frame: Mar 02, 2017 Eating (FIM): 6 Grooming(FIM): 6 Bathing(FIM): 4 Upper Body Dressing(FIM): 5 Lower Body Dressing(FIM): 4 Toileting(FIM): 5 Toilet/Commode Transfer(FIM): 5 Additional Goals: 1-Demonstrate ADL Tasks, 2-Verbalize Understanding, 3- ImproveStrength/Jimmie 1=Demonstrate adherence to instructed precautions during ADL tasks. 2=Patient will verbalize/demonstrate understanding of assistive devices/ modifications for ADL. 3=Patient will improve strength/tolerance for activity to enable patient to perform ADL's. OT Education/Plan Problem List/Assessment Assessment: Decreased Activ Tolerance, Decreased Safety Aware, Decreased UE Strength, Dependent Transfers, Impaired Funct Balance, Impaired Self-Care Skills Pt admitted with left hip fracture and is now s/p surgical repair. Pt demonstrates impaired transfers, ADLs, strength and activity tolerance. Pt to benefit from skilled OT intervention for ADL training, transfers, strengthening , adaptive equipment training, and home safety education to maximize level of function and allow safe discharge plan. Discharge Recommendations Plan/Recommendations: Continue POC Treatment Plan/Plan of Care Treatment,Training & Education: Yes Patient would benefit from OT for education, treatment and training to promote independence in ADL's, mobility, safety and/or upper extremity function for ADL' s. Plan of Care: ADL Retraining, Functional Mobility, UE Funct Exercise/Act Treatment Duration: Mar 02, 2017 Frequency: 5 times per week Estimated Hrs Per Day: .5 hour per day Rehab Potential: Good Time/GCodes Start Time: 13:11 Stop Time: 13:28 Total Time Billed (hr/min): 17 Billed Treatment Time 1 visit, MARGARITA(17minutes) SABRA ALBARADO OT Feb 16, 2017 13:42
[2017-02-16] MEDS: ALPRAZolam 0.5 MG (XANAX) TAB PO SCH (21:12)
[2017-02-17 00:42] VITALS: BP 117/64
[2017-02-17] MEDS: HYDROcodone/APAP 5 MG/325 MG (LORTAB) TAB PO PRN ×3 (04:01→13:59)
[2017-02-17 04:46] VITALS: BP 120/58
[2017-02-17 06:19] LABS: BASOPHILS % (AUTO) 0 % (0-10); EOSINOPHILS # (AUTO) 0.1 10^3/uL (0.0-0.3); EOSINOPHILS % (AUTO) 2 % (0-10); HEMATOCRIT 27 % (35-52); HEMOGLOBIN 8.8 G/DL (11.5-16.0); LYMPHOCYTES # (AUTO) 1.5 X 10^3 (1.0-4.0); LYMPHOCYTES % (AUTO) 17 % (12-44); MEAN CORPUSCULAR HEMOGLOBIN 33 PG (25-34); MEAN CORPUSCULAR HGB CONC 33 G/DL (32-36); MEAN CORPUSCULAR VOLUME 99 FL (80-99); MEAN PLATELET VOLUME 9.7 FL (7.4-10.4); MONOCYTES % (AUTO) 12 % (0-12); NEUTROPHILS # (AUTO) 5.9 X 10^3 (1.8-7.8); NEUTROPHILS % (AUTO) 69 % (42-75); PLATELET COUNT 136 10^3/uL (130-400); RED BLOOD COUNT 2.68 10^6/uL (4.35-5.85); RED CELL DISTRIBUTION WIDTH 15.1 % (10.0-14.5); WHITE BLOOD COUNT 8.6 10^3/uL (4.3-11.0)
[2017-02-17 06:37] LABS: ALANINE AMINOTRANSFERASE 19 U/L (0-55); ALBUMIN 2.4 GM/DL (3.2-4.5); ALKALINE PHOSPHATASE 54 U/L (40-136); BILIRUBIN,TOTAL 1.8 MG/DL (0.1-1.0); BUN/CREATININE RATIO 31; CARBON DIOXIDE 22 MMOL/L (21-32); CHLORIDE 112 MMOL/L (98-107); CREATININE SERUM 0.78 MG/DL (0.60-1.30); GFR ESTIMATED > 60; GLUCOSE 100 MG/DL (70-105); POTASSIUM 3.8 MMOL/L (3.6-5.0); SODIUM 140 MMOL/L (135-145); TOTAL PROTEIN 4.7 GM/DL (6.4-8.2)
[2017-02-17 08:00] VITALS: BP 157/70
[2017-02-17] MEDS: ENOXAPARIN 30 MG/0.3 ML (LOVENOX) SYR SC SCH (08:32)
[2017-02-17] MEDS: cefTRIAXone INJECTION 1,000 MG in NS (IVPB) 50 ML IV SCH (08:33)
[2017-02-17] MEDS: DOCUSATE SODIUM 100 MG (COLACE) CAP PO SCH ×2 (08:33→21:32)
[2017-02-17] MEDS: PARoxetine 20 MG (PAXIL) TAB PO SCH (08:33)
[2017-02-17] MEDS: SENNOSIDES 8.6 MG (SENOKOT) TAB PO SCH ×2 (08:33→21:32)
[2017-02-17] MEDS ORDERED: FAMOTIDINE 20MG/2ML IV (PEPCID) IVP SCH (09:00)
--- NOTE | 2017-02-17 10:01 | Physical Therapy Daily Note ---
PT Daily Note-Current Subjective Patient agrees to PT. Spouse is present. Patient rates left thigh pain 10/10. Pain Numeric Pain Scale: 10-Worst Possible Pain Location: Left Location Body Site: Thigh Pain Description: Acute Mental Status Patient Orientation: Person, Time, Situation Transfers Functional [place] Measure 0=Not Assessed/NA 4=Minimal Assistance 1=Total Assistance 5=Supervision or Setup 2=Maximal Assistance 6=Modified [place] 3=Moderate Assistance 7=Complete IndependenceIRFPAI Quality Coding Scale 6 Independent with activity with or without an assistive device 5 Patient requires set up or clean up by helper. Patient completes activity by themselves 4 Supervision or touching assist (CGA). [place] provide cues , steadying assist 3 The helper provides less than half the effort to complete the activity 2 The helper provides more than half the effort to complete the activity 1 Dependent. The helper does all the effort to complete an activity 7 Patient refused to complete or attempt activity 9 The patient did not perform the activity before the current illness or injury 88 Not attempted due to Medical conditions or safety concerns Transfers (B, C, W/C) (FIM): 2 Scootin Sit to/from Stand: 2 Patient is limited due to pain of left thigh. Education with patient on importance of actively moving left LE to improve strength and function. Weight Bearing Right Lower Extremity: Right Full Weight Bearing Left Lower Extremity: Left Weight Bearing/Tolerated Gait Training Gait (FIM): 1 Distance (FIM): 1=up to 49 ft Distance: 10' Gait Level of Assist: 2 Gait Persons Needed: 2 Gait Assistive Device: FWW patient is retropulsive with sit to stand and does not actively advance left LE without max assist. Patient has difficulty with weight shifting to left to advance right LE. Patient presents with trunk flexed posture in stand. Exercises Seated Therapy Exercises: Ankle pumps, Long arc quads Seated Reps: 15 (3 sets) Assessment Patient is very emotional during treatment and appears to self limit due to pain. She states she has never had this much pain before. PT reassured patient she would improve with time and to try to "work" through the pain. Patient stated she was done and began to cry. Patient is up in recliner with needs met and spouse present. PT Short Term Goals Short Term Goals Time Frame: Feb 23, 2017 Transfers (B,C,W/C) (FIM): 5 PT Correction Goals Correction Goals PT Correction Goals Time Frame: Mar 02, 2017 Transfers (B,C,W/C) (FIM): 6 Gait (FIM): 5 Gait distance (FIM): 5=650-89 ft Distance: 75 Gait Level of Assist: 6 Gait Assistive Device: FWW Stairs (FIM): 5 # of Steps: 4 Stairs Level Of Assist: 6 PT Plan Treatment/Plan Treatment Plan: Continue Plan of Care Treatment Plan: Bed Mobility, Education, Functional Activity Jimmie, Functional Strength, Gait, Safety, Therapeutic Exercise, Transfers Treatment Duration: Mar 02, 2017 Frequency: 11 times per week Estimated Hrs Per Day: .5 hour per day Patient and/or Family Agrees t: Yes Time/GCodes Time In: 904 Time Out: 927 Total Billed Treatment Time: 23 Total Billed Treatment 1 visit EX 8 min GT 15 min CHRISTIANO MULLEN PT Feb 17, 2017 10:00
[2017-02-17] MEDS: FAMOTIDINE 20 MG (PEPCID) TABLET PO SCH (10:06)
[2017-02-17 12:00] VITALS: BP 146/63
[2017-02-17] MEDS: IRON SUCROSE INJECTION 200 MG in NS (IVPB) 100 ML IV SCH (12:18)
[2017-02-17] MEDS: NS IV 1000 ML 1,000 ML IV SCH (12:19)
--- NOTE | 2017-02-17 13:27 | Occupational Ther Daily Note ---
OT Current Status-Daily Note Subjective Pt sitting in chair, agrees to treatment. Pt states she has little pain at rest , but pain in left hip with movement. Mental Status/Objective Functional [place] Measure 0=Not Assessed/NA 4=Minimal Assistance 1=Total Assistance 5=Supervision or Setup 2=Maximal Assistance 6=Modified [place] 3=Moderate Assistance 7=Complete [place] Attachments: IV ADL-Treatment Pt states she had a shower and got dressed with assist from nursing. Educated pt on use of adaptive equipment for LE dressing. Pt doffed sock with SBA using dressing stick. Donned sock with SBA and verbal cues using sock aid. PT arrived for treatment. Pt sitting in chair with needs met, PT and spouse present after session. Education OT Patient Education: Modified ADL techniques Teaching Recipient: Patient Teaching Methods: Demonstration, Discussion Response to Teaching: Verbalize Understanding, Reinforcement Needed OT Short Term Goals Short Term Goals Transfers (B,C,W/C) (FIM): 5 1=Demonstrate adherence to instructed precautions during ADL tasks. 2=Patient will verbalize/demonstrate understanding of assistive devices/ modifications for ADL. 3=Patient will improve strength/tolerance for activity to enable patient to perform ADL's. OT Summons Server Goals Summons Server Goals Time Frame: Mar 02, 2017 Eating (FIM): 6 Grooming(FIM): 6 Bathing(FIM): 4 Upper Body Dressing(FIM): 5 Lower Body Dressing(FIM): 4 Toileting(FIM): 5 Toilet/Commode Transfer(FIM): 5 Additional Goals: 1-Demonstrate ADL Tasks, 2-Verbalize Understanding, 3- ImproveStrength/Jimmie 1=Demonstrate adherence to instructed precautions during ADL tasks. 2=Patient will verbalize/demonstrate understanding of assistive devices/ modifications for ADL. 3=Patient will improve strength/tolerance for activity to enable patient to perform ADL's. OT Education/Plan Problem List/Assessment Pt admitted with left hip fracture and is now s/p surgical repair. Pt demonstrates impaired transfers, ADLs, strength and activity tolerance. Pt to benefit from skilled OT intervention for ADL training, transfers, strengthening , adaptive equipment training, and home safety education to maximize level of function and allow safe discharge plan. Discharge Recommendations Plan/Recommendations: Continue POC Treatment Plan/Plan of Care Patient would benefit from OT for education, treatment and training to promote independence in ADL's, mobility, safety and/or upper extremity function for ADL' s. Plan of Care: ADL Retraining, Functional Mobility, UE Funct Exercise/Act Treatment Duration: Mar 02, 2017 Frequency: 5 times per week Estimated Hrs Per Day: .5 hour per day Rehab Potential: Good Time/GCodes Start Time: 13:00 Stop Time: 13:10 Total Time Billed (hr/min): 10 Billed Treatment Time 1 visit, ADL(10minutes) SABRA ALBARADO OT Feb 17, 2017 13:27
--- NOTE | 2017-02-17 13:38 | Progress Note-Hospitalist ---
Standard Progress Note Progress Notes/Assess & Plan Date Seen 02/17/17 Time Seen by Provider: 13:31 Diagnosis Assessment: Left acute femur fracture status post uncomplicated repair by Dr. Carreno POD # 0 Hyperlipidemia maintained on statin Anxiety maintain on Paxil High risk for delirium due to advanced age Assess & Plan/Chief Complaint The patient therapy when I came into the room. The object was to stand from sitting. She was unable to complete this even with one person assistance. Her greatest complaint was pain. She will reach 3 midnights tonight. I spoke with her and the patient about the fact that I RF appropriately declined as they felt she could not do 3 hours of rehabilitation daily. Her option would then be [facility]. The patient and her believes as they live in [place] it would be appropriate for them to go to a facility there. Accordingly arrangements are being made. Physical exam: Lungs are clear to auscultation. CV is regular without murmur. She is alert and appears oriented however she is fairly hard of hearing. Impression: Day number 3 post hip fracture, left. Plan: volunteer services supervisor is contacted [place] [facility] facilities. Labs Laboratory Tests 02/16/17 05:41 02/17/17 05:40 LATONIA AYALA MD Feb 17, 2017 13:38
--- NOTE | 2017-02-17 14:24 | Physical Therapy Daily Note ---
PT Daily Note-Current Subjective Patient is just complete with OT and agrees to PT. Pain Numeric Pain Scale: 10-Worst Possible Pain Location: Left Location Body Site: Thigh Pain Description: Acute Comment: FLACC Mental Status Patient Orientation: Person, Time, Situation Transfers Functional [place] Measure 0=Not Assessed/NA 4=Minimal Assistance 1=Total Assistance 5=Supervision or Setup 2=Maximal Assistance 6=Modified [place] 3=Moderate Assistance 7=Complete IndependenceIRFPAI Quality Coding Scale 6 Independent with activity with or without an assistive device 5 Patient requires set up or clean up by helper. Patient completes activity by themselves 4 Supervision or touching assist (CGA). [place] provide cues , steadying assist 3 The helper provides less than half the effort to complete the activity 2 The helper provides more than half the effort to complete the activity 1 Dependent. The helper does all the effort to complete an activity 7 Patient refused to complete or attempt activity 9 The patient did not perform the activity before the current illness or injury 88 Not attempted due to Medical conditions or safety concerns Transfers (B, C, W/C) (FIM): 2 Scootin Sit to/from Stand: 2 retropulsive with sit to stand transfers and is very tearful/fearful Weight Bearing Right Lower Extremity: Right Full Weight Bearing Left Lower Extremity: Left Weight Bearing/Tolerated Gait Training unable to take steps this p.m. Exercises Seated Therapy Exercises: Ankle pumps, Sit to stand (4 sets), Long arc quads Seated Reps: 15 (2 sets) Assessment Dr. Acosta present during attempt to ambulate. From a PT standpoint, patient will benefit from LTCF to ensure full recovery. PT Short Term Goals Short Term Goals Time Frame: Feb 23, 2017 Transfers (B,C,W/C) (FIM): 5 PT Card Services Specialist Goals Shelter Goals PT Card Services Specialist Goals Time Frame: Mar 02, 2017 Transfers (B,C,W/C) (FIM): 6 Gait (FIM): 5 Gait distance (FIM): 2=218-19 ft Distance: 75 Gait Level of Assist: 6 Gait Assistive Device: FWW Stairs (FIM): 5 # of Steps: 4 Stairs Level Of Assist: 6 PT Plan Treatment/Plan Treatment Plan: Continue Plan of Care Treatment Plan: Bed Mobility, Education, Functional Activity Jimmie, Functional Strength, Gait, Safety, Therapeutic Exercise, Transfers Treatment Duration: Mar 02, 2017 Frequency: 11 times per week Estimated Hrs Per Day: .5 hour per day Patient and/or Family Agrees t: Yes Discharge Recommendations Therapy D/C Recommendations: Group Home Placement, Assisted (TCU/NH) Time/GCodes Time In: 1305 Time Out: 1328 Total Billed Treatment Time: 23 Total Billed Treatment 1 visit EX 13 min FA 10 min CHRISTIANO MULLEN PT Feb 17, 2017 14:24
[2017-02-17 16:00] VITALS: BP 149/67
[2017-02-17 20:00] VITALS: BP 145/70
[2017-02-17] MEDS: ALPRAZolam 0.5 MG (XANAX) TAB PO SCH (21:32)
[2017-02-18] MEDS: NS IV 1000 ML 1,000 ML IV SCH ×2 (00:36→13:21)
[2017-02-18 00:39] VITALS: BP 130/63
[2017-02-18 04:05] VITALS: BP 138/63
[2017-02-18 08:00] VITALS: BP 153/65
[2017-02-18] MEDS: cefTRIAXone INJECTION 1,000 MG in NS (IVPB) 50 ML IV SCH (08:16)
[2017-02-18] MEDS: ENOXAPARIN 30 MG/0.3 ML (LOVENOX) SYR SC SCH (08:17)
[2017-02-18] MEDS: DOCUSATE SODIUM 100 MG (COLACE) CAP PO SCH (08:17)
[2017-02-18] MEDS: FAMOTIDINE 20 MG (PEPCID) TABLET PO SCH (08:18)
[2017-02-18] MEDS: SENNOSIDES 8.6 MG (SENOKOT) TAB PO SCH (08:18)
[2017-02-18] MEDS: HYDROcodone/APAP 5 MG/325 MG (LORTAB) TAB PO PRN ×2 (08:18→13:43)
[2017-02-18] MEDS: PARoxetine 20 MG (PAXIL) TAB PO SCH (08:23)
--- NOTE | 2017-02-18 09:25 | Physical Therapy Progress Note ---
Therapy Progress Note Patient refused treatment this morning. Patient states she has 10/10 pain in her leg and is ill. Patient states that she thinks she is going to . Will try back later after patient has had some pain meds. HOMER DUNN PT Feb 18, 2017 09:25
[2017-02-18] MEDS ORDERED: SENN-140 PO (10:57)
[2017-02-18] MEDS ORDERED: ACHD5005 PO (10:57)
[2017-02-18] MEDS ORDERED: TRAM50TA2 PO (10:57)
[2017-02-18] MEDS ORDERED: BISA5TAB8 PO (10:57)
[2017-02-18] MEDS ORDERED: DOCU100C37 PO (10:57)
[2017-02-18] MEDS ORDERED: ALPR0.5T7 PO (10:58)
--- NOTE | 2017-02-18 11:01 | Discharge Summary-Hospitalist ---
Diagnosis/Chief Complaint Date of Admission Feb 14, 2017 at 23:30 Date of Discharge Discharge Date: Feb 18, 2017 Admission Diagnosis Assessment: Left acute femur fracture status post uncomplicated repair by Dr. Carreno POD # 0 Hyperlipidemia maintained on statin Anxiety maintain on Paxil High risk for delirium due to advanced age Discharge Diagnosis Assessment: Left acute femur fracture status post uncomplicated repair by Dr. Carreno POD # 2 Hyperlipidemia maintained on statin Anxiety maintain on Paxil High risk for delirium due to advanced age Severe post op anemia due to acute blood loss s/p 2 units of blood Discharge Summary Discharge Physical Examination Allergies: Coded Allergies: No Known Drug Allergies (Unverified , 02/14/17) Vitals & I&Os Vital Signs Date Time Temp Pulse Resp B/P (MAP) Pulse Ox O2 Delivery O2 Flow Rate FiO2 02/18/17 14:29 75 20 153/65 98 Room Air 1.00 02/18/17 08:00 98.9 Hospital Course Hospital course: Patient had an uneventful hospital course she received 2 units of blood postop severe anemia of 7.2 of which she tolerated well. She was deemed stable for discharge to a nursing facility in [facility] and I did update her primary care provider Dr. Jasmyne Pimentel at [facility]. She was having no issues at the time of discharge and overall everyone was in agreement and all orders placed pain medication prescriptions discharged with her. Labs (last 24 hrs) Laboratory Tests 02/19/17 11:09: Lab Scanned Report Transfusion Reaction Form Microbiology 02/15/17 MRSA Screen - Final, Complete MRSA not isolated Pending Labs Laboratory Tests 02/19/17 11:09: Lab Scanned Report Transfusion Reaction Form Discharge Home Medications: Active Scripts Active Alprazolam 0.5 Mg Tablet 0.5 Mg PO HS Bisacodyl 5 Mg Tablet.dr 5 Mg PO DAILY PRN 30 Days Docusate Sodium 100 Mg Capsule 100 Mg PO BID 30 Days Senna (Sennosides) 8.6 Mg Tablet 8.6 Mg PO BID 30 Days Tramadol HCl 50 Mg Tablet 50 Mg PO Q4H PRN Hydrocodone/Acetaminophen 5/325mg Tablet (Acetaminophen/Hydrocodone Bitart) 1 Tab Tab 1-2 Tab PO Q4H PRN Reported Ibuprofen 600 Mg Tablet 600 Mg PO Q8H PRN Paroxetine HCl 20 Mg Tablet 20 Mg PO DAILY Lovastatin 10 Mg Tablet 10 Mg PO DAILY Instructions to patient/family Please see electronic discharge instructions given to patient. Clinical Quality Measures DVT/VTE Risk/Contraindication: Risk Factor Score Per Nursin RFS Level Per Nursing on Admit: 4+=Very High LOI TIPTON DO Feb 18, 2017 11:01
--- NOTE | 2017-02-18 11:01 | Discharge Inst-Skilled Nursing ---
Discharge Inst-Skilled NF Chief Complaint CC: Medical management following left femur fracture s/p uncomplicated repair by Dr Carreno POD # 0 HPI: This is an 86-year-old white female that was visiting her niece's house last night when she fell suffering a left femur fracture. Dr. Carreno performed an uncomplicated repair this morning and she is currently in her room and 425 denying any issues. Her of 8 years is at the bedside and reports that Dr. Pimentel in [facility] is her primary care provider and recently gave her a clean bill of health. I explained my role in her treatment plan and I will be checking morning labs. Patient Instructions Patient Problems: Hip fracture Debility requiring NH placement Anemia Goal: Return [facility] Consult/Follow Up/Orders Follow Up Appt.: Dr Barrett Carreno as scheduled Skilled NF Admit to: [facility] Certification (SNF) I certify that SNF services are required to be given on an inpatient basis because of the above named patient's need for retirement care on a continuing basis for the conditions(s) for which he/she was receiving inpatient hospital services prior to his/her transfer to the SNF. Discharge Diet: No Restrictions New & Resume Previous Orders New Medications: Bisacodyl (Bisacodyl) 5 Mg Tablet.dr 5 MG PO DAILY PRN for CONSTIPATION-1ST LINE for 30 Days, TAB Docusate Sodium (Docusate Sodium) 100 Mg Capsule 100 MG PO BID for 30 Days, CAP Hydrocodone Bit/Acetaminophen (Hydrocodone/Acetaminophen 5/325mg Tablet) 1 Tab Tab 1-2 TAB PO Q4H PRN for PAIN-MODERATE TO SEVERE, #60 TAB Sennosides (Senna) 8.6 Mg Tablet 8.6 MG PO BID for 30 Days, TAB Tramadol HCl (Tramadol HCl) 50 Mg Tablet 50 MG PO Q4H PRN for PAIN-MODERATE, #60 TAB Continued Medications: Alprazolam (Alprazolam) 0.5 Mg Tablet 0.5 MG PO HS, #30 (This prescription has been renewed) Ibuprofen (Ibuprofen) 600 Mg Tablet 600 MG PO Q8H PRN for PAIN-MILD Lovastatin (Lovastatin) 10 Mg Tablet 10 MG PO DAILY, TAB Paroxetine HCl (Paroxetine HCl) 20 Mg Tablet 20 MG PO DAILY Edith Vyas Feb 18, 2017 10:59 EDITH VYAS DO Feb 18, 2017 11:01
--- NOTE | 2017-02-18 11:14 | Physical Therapy Daily Note ---
PT Daily Note-Current Subjective Patient in recliner pre tx, she needs a lot of encouragement to participate and tries to refuse many times coming up with various excuses. Patient rates pain at 10/10. Appearance Patient in recliner post tx with nurse call, family in room. Mental Status Patient Orientation: Person, Place, Situation Transfers Functional [place] Measure 0=Not Assessed/NA 4=Minimal Assistance 1=Total Assistance 5=Supervision or Setup 2=Maximal Assistance 6=Modified [place] 3=Moderate Assistance 7=Complete IndependenceIRFPAI Quality Coding Scale 6 Independent with activity with or without an assistive device 5 Patient requires set up or clean up by helper. Patient completes activity by themselves 4 Supervision or touching assist (CGA). [place] provide cues , steadying assist 3 The helper provides less than half the effort to complete the activity 2 The helper provides more than half the effort to complete the activity 1 Dependent. The helper does all the effort to complete an activity 7 Patient refused to complete or attempt activity 9 The patient did not perform the activity before the current illness or injury 88 Not attempted due to Medical conditions or safety concerns Transfers (B, C, W/C) (FIM): 2 Sit to/from Stand: 2 Patient could not stand using the walker, a therapist had to drilling superintendent front of her for sit to stand with max assist. She was able to stand for about 30 seconds before having to sit. Weight Bearing Right Lower Extremity: Right Full Weight Bearing Left Lower Extremity: Left Weight Bearing/Tolerated Exercises Seated Therapy Exercises: Long arc quads, Hip abd/add Seated Reps: 20 Treatments transfers, functional strengthening Assessment Current Status: Poor Progress Patient has poor motivation, educated patient on the benefit of movement. PT Short Term Goals Short Term Goals Time Frame: Feb 23, 2017 Transfers (B,C,W/C) (FIM): 5 PT Fdc Goals Fdc Goals PT Meter And Service Line Inspector Goals Time Frame: Mar 02, 2017 Transfers (B,C,W/C) (FIM): 6 Gait (FIM): 5 Gait distance (FIM): 6=039-13 ft Distance: 75 Gait Level of Assist: 6 Gait Assistive Device: FWW Stairs (FIM): 5 # of Steps: 4 Stairs Level Of Assist: 6 PT Plan Problem List Problem List: Activity Tolerance, Functional Strength, Safety, Balance, Gait, Transfer, Bed Mobility, ROM Treatment/Plan Treatment Plan: Continue Plan of Care Treatment Plan: Bed Mobility, Education, Functional Activity Jimmie, Functional Strength, Gait, Safety, Therapeutic Exercise, Transfers Treatment Duration: Mar 02, 2017 Frequency: 11 times per week Estimated Hrs Per Day: .5 hour per day Patient and/or Family Agrees t: Yes Safety Risks/Education Patient Education: Transfer Techniques, Correct Positioning, Disease Process, Safety Issues Teaching Recipient: Patient Teaching Methods: Demonstration, Discussion Response to Teaching: Reinforcement Needed Time/GCodes Time In: 1055 Time Out: 1110 Total Billed Treatment Time: 15 Total Billed Treatment 1 visit FA HOMER HYLTON PT Feb 18, 2017 11:14
[2017-02-18 14:29] VITALS: BP 153/65
== END 2017-02-18 14:36 | DRG 481 ==
LOC: ER 23:25 → 4TH 23:30
PROVIDERS: ADMIT Orthopaedic Surgery Orthopaedic Trauma; ATTEND Orthopaedic Surgery Orthopaedic Trauma
PROC: 0QS706Z Reposition Left Upper Femur with Intramedullary Internal Fixation Device, Open Approach (ICD-10-PCS; principal; 2017-02-15 10:26)
DX: S72.142A Displaced intertrochanteric fracture of left femur, initial encounter for closed fracture (principal); W10.1XXA Fall (on)(from) sidewalk curb, initial encounter; D62 Acute posthemorrhagic anemia; E78.00 Pure hypercholesterolemia, unspecified; E78.5 Hyperlipidemia, unspecified; M19.91 Primary osteoarthritis, unspecified site; F41.9 Anxiety disorder, unspecified; F32.9 Major depressive disorder, single episode, unspecified
CPT/HCPCS: 36415; 70450; 72125; 80053; 83540; 85025; 85027; 85610; 85730; 86850; 86900; 86901; 86920; 87081; 94664